=== PATIENT | female | born 1975 | race Caucasian/White ===

== ENCOUNTER 2025-01-22 06:52 | Day surgery (SDC) | payer OTHER ==
[~2025-01-22 06:52] MED LIST: Sodium Chloride 0.9% 10 ML Syringe FLUSH PRN; Sodium Chloride 0.9% 10 ML Syringe FLUSH SCH
[2025-01-22] MEDS: Lactated Ringers 1,000 ML IV SCH (07:10)
[2025-01-22] MEDS ORDERED: Propofol 200 MG/20 ML SDV ONE ×2 (08:00→08:20)
[2025-01-22] MEDS: Lidocaine 1% with EPINEPHrine 1:100,000 20 ML MDV ONE (08:21)
[2025-01-22] MEDS ORDERED: Ketorolac 15 MG/ML SDV ONE (08:27)
== END 2025-01-22 09:10 | disposition home or self-care (01) ==
LOC: JD.SDS 06:52
PROVIDERS: ATTEND Surgery
DX: Z12.11 Encounter for screening for malignant neoplasm of colon (principal); K62.0 Anal polyp; K62.89 Other specified diseases of anus and rectum; K64.0 First degree hemorrhoids; Z80.0 Family history of malignant neoplasm of digestive organs; Z88.8 Allergy status to other drugs, medicaments and biological substances; Z79.899 Other long term (current) drug therapy
CPT/HCPCS: 45378; 46922; J1885; J2003; J2004; J2704; J7120; 00811